=== PATIENT | male | born 1950 | race Caucasian/White ===

== ENCOUNTER 2016-07-02 08:17 | Inpatient (IN) | payer OTHER, BC ==
[2016-06-27 14:48] VITALS: BMI 38.0
--- NOTE | 2016-06-27 15:37 | PAT Medication Instructions ---
Service Date Jun 27, 2016. Current Home Medication List Amlodipine/Benazepril (Lotrel 10MG/20MG), 1 CAP PO QAM Ascorbic Acid (Vitamin C), 1,000 MG PO QAM Atenolol (Tenormin), 50 MG PO HS Cholecalciferol (Vitamin D), 2,000 INTER.UNIT PO DINNER Ferrous Sulfate (Ferrous Sulfate), 1 TAB PO QAM Finasteride (Proscar), 5 MG PO QPM Furosemide (Lasix), 20 MG PO QAM Levothyroxine Sodium (Levothyroxine Sodium), 1 TAB PO QAM Multivitamin (Multivitamin), 1 TAB PO QAM Omeprazole (Prilosec), 20 MG PO QAM Psyllium (Metamucil Powder), 1 PACK PO QAM Sertraline (Zoloft), 100 MG PO QAM Tamsulosin HCl (Tamsulosin HCl), 0.4 MG PO QPM Vitamin B Cmplx/Vitc/Folic Ac (Nephrocaps), 1 CAP PO QAM Medication Instructions For Your Scheduled Surgery - Hold the following medications the morning of surgery: Vitamin B Cmplx/Vitc/Folic Ac (Nephrocaps), 1 CAP PO QAM Psyllium (Metamucil Powder), 1 PACK PO QAM Multivitamin (Multivitamin), 1 TAB PO QAM Ascorbic Acid (Vitamin C), 1,000 MG PO QAM Furosemide (Lasix), 20 MG PO QAM Ferrous Sulfate (Ferrous Sulfate), 1 TAB PO QAM Amlodipine/Benazepril (Lotrel 10MG/20MG), 1 CAP PO QAM - Take the following medications the morning of surgery with a sip of water: Sertraline (Zoloft), 100 MG PO QAM Omeprazole (Prilosec), 20 MG PO QAM Levothyroxine Sodium (Levothyroxine Sodium), 1 TAB PO QAM - Take the following medications as scheduled the night before surgery: Tamsulosin HCl (Tamsulosin HCl), 0.4 MG PO QPM Cholecalciferol (Vitamin D), 2,000 INTER.UNIT PO DINNER Finasteride (Proscar), 5 MG PO QPM Atenolol (Tenormin), 50 MG PO HS If you have any questions please call us at [phone] or [phone] ( [place]) or [phone]
[2016-06-27 16:36] LABS: BASO % 0.3 %; BASO ABS # 0.02 K/uL (0-0.2); COMPLETE YES; EOS % 2.5 %; HEMATOCRIT 43.3 % (42-52); IG% 0.1 %; LYMPH % 28.6 %; LYMPH ABS # 1.94 K/uL (1.2-3.4); MEAN CELL VOLUME 89.1 fL (80-100); MEAN CORPUSCULAR HEMOGLOBIN 31.3 pg (25-34); MEAN CORPUSCULAR HGB CONC 35.1 g/dl (32-36); MEAN PLATELET VOLUME 10.5 fL (7.4-10.4); MONO % 8.1 %; NEUT % 60.4 %; PLATELET COUNT 181 K/uL (130-400); RED BLOOD COUNT 4.86 M/uL (4.7-6.1); WHITE BLOOD COUNT 6.78 K/uL (4.8-10.8)
--- NOTE | 2016-06-27 16:43 | DIAGNOSTIC IMAGING REPORT ---
CHEST PREADMISSION(PA/LAT) HISTORY: Preop. COMPARISON: Chest 05/10/2016. FINDINGS: The lungs are clear. Cardiac silhouette is normal in size. No pleural effusions. No pneumothorax. IMPRESSION: No acute process. Electronically signed by: Joaquín Steen M.D. 06/27/2016 4:41 PM Dictated Date/Time: 06/27/2016 4:39 PM
[2016-06-27 16:49] LABS: PROTHROMBIN TIME (PATIENT) 11.2 SECONDS (9.0-12.0)
[2016-06-27 17:00] LABS: BUN/CREATININE RATIO 17.6 (10-20); CREATININE 0.79 mg/dl (0.60-1.40); POTASSIUM 4.1 mmol/L (3.5-5.1)
--- NOTE | 2016-06-29 11:40 | HISTORY & PHYSICAL EXAMINATION ---
DATE OF ADMISSION: 07/02/2016 CHIEF COMPLAINT: Right knee pain and discomfort. HISTORY OF PRESENT ILLNESS: The patient is a 66-year-old gentleman who is well known to me from a previous left knee replacement done little over a year ago. He has a history of bilateral knee pain. The left knee is doing well. The right knee has become more debilitating. He has pain all the time. It is increased with weightbearing. It has really started to limit his activities. He cannot walk due to the pain. He does have a history of knee arthroscopy back in 2005 on this side which helped for several years. He would now like to proceed with surgical treatment of his right knee. PAST MEDICAL HISTORY: 1. History of intermittent atrial fibrillation with bronchitis, was previously on Xarelto but now off since mid may. 2. Hypertension. 3. Elevated cholesterol. 4. Sleep apnea with CPAP machine. 5. Hypothyroidism. 6. Obesity with a BMI of 39. 7. Gastroesophageal reflux disease. 8. Arthritis. 9. Basal cell skin cancer. 10. BPH. 11. Kidney stones. PAST SURGICAL HISTORY: Previous surgeries include: 1. Appendectomy. 2. Right carpal tunnel release. 3. Kidney stone surgery. 4. Nasal surgery. 5. Palate surgery. 6. Right knee scope done in 2005. 7. Left knee scope in 2006. 8. Prostate biopsy. 9. Rectal fistula. 10. Bladder stone surgery. 11. Back surgery done 2014. 12. Left knee replacement done June 2015. 13. Basal cell skin cancer. 14. Cataract surgery. ALLERGIES: STATINS. CURRENT MEDICINES: 1. Zoloft 100 mg a day. 2. Lotrel 10/20 once a day. 3. Lasix 20 mg a day. 4. Prilosec 20 mg a day. 5. Iron sulfate 325 once a day. 6. Metamucil. 7. Atenolol 25 mg at nighttime. 8. Baby aspirin twice a day. 9. Niacin 500 mg twice a day. 10. Levothyroxine 125 mcg a day. 11. Vitamin D 2000 international units a day. 12. Tamsulosin 0.4 mg once a day. 13. Finasteride 5 mg a day. 14. Multivitamin. 15. Vitamin C. 16. Vitamin B. SOCIAL HISTORY: A 66-year-old male. He is from [place]. FAMILY HISTORY: Noncontributory. REVIEW OF SYSTEMS: Negative for diabetes. He does have a history of some intermittent atrial fibrillation with bronchitis, but now in sinus rhythm. He was on Xarelto but now off. PHYSICAL EXAMINATION: GENERAL: Reveals a pleasant middle-aged male. He looks to be in reasonably good health. HEENT: Benign. NECK: Supple. No lymphadenopathy. LUNGS: Clear to auscultation. HEART: Regular rate and rhythm. ABDOMEN: Soft, nontender, nondistended. EXTREMITIES: Grossly neurovascularly intact except as follows: Examination of the right knee reveals the patient walks with a varus alignment to his knee. He does limp on the right side. He has got a varus thrust with weightbearing. Range of motion is 0-120. He is tender over the medial joint line. X-RAYS: X-rays of the right knee revealed advanced right knee DJD. He has got tricompartment disease, most severe in the medial side. He has got chondrocalcinosis. He has got anterior subluxation of the tibia, suggesting ACL deficiency. ASSESSMENT: A 66-year-old gentleman little over a year out from left knee replacement with advanced right knee degenerative joint disease. He has failed conservative treatment. He would like to have his right knee replaced. PLAN: We will take him to the operating room and do a right total knee replacement. The risks and benefits of this procedure were explained to the patient including but not limited to DVT, PE, , infection, neurological injury, vascular injury, bleeding problem, pain, limited range of motion, stiffness, failure to relieve symptoms, incomplete relief of symptoms, need for further surgery in the future, fracture, leg length inequality, persistent pain, etc. The patient understands and desires to proceed. Informed consent was obtained. We did talk about making sure he takes his atenolol the evening before surgery. He will bring his CPAP machine to the hospital. He stopped his Xarelto in the middle of May as his bronchitis has resolved. We will use aspirin for DVT prophylaxis as well as TEDs and SCDs. I will see him back 2 weeks postop.
[~2016-07-02] VITALS: Ht 175.3 cm; Wt 118.3 kg
[2016-07-02] VITALS (7 sets, daily range): BP systolic 126–166; BP diastolic 74–89; PULSE 58–68; TEMP 36.5–36.8; O2SAT 92–96; Ht 175.3 cm; Wt 118.3 kg
[~2016-07-02 08:17] MED LIST: ACETAMINOPHEN 500 MG TAB PO SCH; AMLO10CA PO; ASCO10003 PO; ATEN-173 PO; B-COCAP2 PO; BUPIVACAINE 0.5 % 5 MG/1 ML PF 10ML VIAL ONE; BUPIVACAINE LIPOSOME 266 MG, BUPIVACAINE/EPINEPHRINE INJ 50 ML, SODIUM CHLORIDE 0.9% PF... INFIL SCH; CEFAZOLIN 2000 MG/60 ML D5W 60 ML IV SCH; CHOL100010 PO; FAMOTIDINE 20 MG TAB PO SCH; FERR324T4 PO; FINA5TAB PO; FLM4 PO; FURO-85 PO; GABAPENTIN 300 MG CAP PO SCH; LACTATED RINGER'S 1000ML 1,000 ML IV SCH; LACTATED RINGER'S 1000ML 500 ML IV ONE; LACTATED RINGER'S 1000ML IV SCH; LEVO125T4 PO; METOCLOPRAMIDE HCL 10 MG TAB PO SCH; MULT-506 PO; PRLSR20 PO; PSYL55.43 PO; SCOPOLAMINE 1.5 MG TDSY TD SCH; SERT-234 PO; TRANEXAMIC ACID AMP 1,000 MG in NSS 100ML IV SCH
--- NOTE | 2016-07-02 09:08 | History & Physical Bridge Note ---
H&P Re-Evaluation Bridge Note: I have examined the patient, reviewed the History & Physical and in the interval since the performance of the History & Physical I have noted the following changes of clinical significance: No changes noted
[2016-07-02] MEDS ORDERED: ONDANSETRON INJ 2 MG/ML 2 ML VIAL ONE (09:58)
[2016-07-02] MEDS ORDERED: MIDAZOLAM HCL 1 MG/ML 2ML VIAL ONE (09:58)
[2016-07-02] MEDS ORDERED: PROPOFOL IV EMULSION 10 MG/ML 20 ML VIAL IV ONE (09:58)
[2016-07-02] MEDS ORDERED: LIDOCAINE HCL 2% 2 ML VIAL (20MG/ML) ONE (09:58)
[2016-07-02] MEDS ORDERED: FENTANYL CITRATE INJ 50 MCG/1 ML 2 ML VIAL ONE (09:58)
[2016-07-02] MEDS ORDERED: ATROPINE SULFATE 0.1 MG/ML 5ML SYR IV PRN (10:15)
[2016-07-02] MEDS ORDERED: EpHEDrine SULFATE INJ 50 MG/ML AMP IV PRN (10:15)
[2016-07-02] MEDS ORDERED: FENTANYL CITRATE INJ 50 MCG/1 ML 2 ML VIAL IV PRN (10:15)
[2016-07-02] MEDS ORDERED: ONDANSETRON INJ 2 MG/ML 2 ML VIAL IV PRN ×2 (10:15→13:15)
[2016-07-02] MEDS ORDERED: BUPIVACAINE LIPOSOME 1/3% 266 MG/20 ML VIAL INFIL ONE (11:08)
[2016-07-02] MEDS ORDERED: EpHEDrine SULFATE 50MG/5ML SYR ONE (12:04)
[2016-07-02] MEDS ORDERED: BACITRACIN 50000 UNIT VIAL IR ONE (12:12)
--- NOTE | 2016-07-02 13:09 | [facility] Post Operative Brief Note ---
Immediate Operative Summary Operative Date Jul 02, 2016. Pre-Operative Diagnosis Advanced Right Knee Degenerative Joint Disease Post-Operative Diagnosis Advanced Right Knee Degenerative Joint Disease Procedure(s) Performed Right Total Knee Arthroplasty Surgeon Dr. Mc Swine Genetics Researcher Surgeon(s) ALDO Mario Estimated Blood Loss 50 ml Findings Right Knee DJD Specimens A. Right Knee Bone and Tissue Drains None Anesthesia Spinal Complication(s) None Disposition Recovery Room / PACU
[2016-07-02] MEDS ORDERED: SILVER SULFADIAZINE 1% CR 50 GM JAR EXT PRN (13:15)
[2016-07-02] MEDS ORDERED: MAGNESIUM HYDROXIDE SUSP 30 ML UDC PO PRN (13:15)
[2016-07-02] MEDS ORDERED: BISACODYL 10 MG SUPP PR PRN (13:15)
[2016-07-02] MEDS ORDERED: METOCLOPRAMIDE HCL INJ 5 MG/ML 2 ML VIAL IV PRN (13:15)
[2016-07-02] MEDS ORDERED: ALUMINUM/MAGNESIUM/SIMETH (MAALOX MAX) 30 ML UDC PO PRN (13:15)
[2016-07-02] MEDS ORDERED: DiphenhydrAMINE HCL 50 MG/ML VIAL IV PRN (13:15)
[2016-07-02] MEDS ORDERED: ZOLPIDEM TARTRATE 5 MG TAB PO PRN (13:15)
--- NOTE | 2016-07-02 13:43 | DIAGNOSTIC IMAGING REPORT ---
RIGHT KNEE 1 OR 2 VIEWS ROUTINE CLINICAL HISTORY: Osteoarthritis. Postop study COMPARISON: None. DISCUSSION: There are postsurgical changes of a total right knee arthroplasty and patellar resurfacing. The femoral and tibial components appear well seated. Overlying skin neptali are evident. There is air in the soft tissues consistent with recent surgery. IMPRESSION: Postsurgical changes of a total right knee arthroplasty. Electronically signed by: Steve Ji M.D. 07/02/2016 1:41 PM Dictated Date/Time: 07/02/2016 1:41 PM
--- NOTE | 2016-07-02 14:16 | OPERATIVE REPORT ---
DATE OF OPERATION: 07/02/2016 SURGEON: Tru Mc MD STENOTYPE OPERATOR: ALDO Segovia PREOPERATIVE DIAGNOSIS: Right knee degenerative joint disease. POSTOPERATIVE DIAGNOSIS: Same. PROCEDURE PERFORMED: Right cemented posterior stabilized total knee arthroplasty. COMPLICATIONS: None. ESTIMATED BLOOD LOSS: 50 mL. FLUID REPLACEMENT: 1500 mL crystalloid fluid replacement. ANESTHESIA: Spinal with adductor canal block. DRAINS: None. SPECIMENS: Right knee sent for pathology. TOURNIQUET TIME: 59 minutes at 300 mmHg. OPERATIVE INDICATIONS: The patient is a 66-year-old fairly active gentleman who has had a long history of bilateral knee pain and discomfort. He has had both of his knees scoped over 10 years ago. He underwent a left knee replacement a year ago and has done pretty well. He has developed persistent and progressive pain in his right knee, unresponsive to conservative care. He elected to proceed with right total knee arthroplasty. OPERATIVE FINDINGS: Operative findings revealed advanced right knee DJD. He had extensive grade 4 changes in the medial femoral condyle and medial tibial plateau. He has spotty grade 4 changes in the other 2 compartments. He had pretty significant posterior medial osteophytes. Moderate size joint effusion. OPERATIVE IMPLANTS: Operative implants consisted of: 1. Biomet Vanguard size 67.5 right posterior stabilized femoral component. 2. Biomet size 75 tibial tray. 3. A 12-mm posterior stabilized polyethylene insert. 4. A 34 x 8.5 all poly patella. OPERATIVE PROCEDURE: The patient was taken to the operating room, identified and placed on the operating table in the supine position. All contact areas were appropriately padded. IV antibiotics were provided by the anesthesia team. A spinal anesthetic and adductor canal block had been provided in the holding area. Mays catheter was placed in sterile fashion. A right thigh tourniquet was then placed and the right lower extremity was then prepped and draped in the usual sterile fashion. The right leg was elevated and exsanguinated with Esmarch. Tourniquet was placed at 300 mmHg. An anterior approach to the right knee was then performed through a longitudinal incision centered over the patella. Sharp dissection was carried out through the subcutaneous tissues down to the level of the extensor mechanism. A medial parapatellar arthrotomy incision was made. Some subperiosteal dissection was carried out medially. The fat pad was resected from beneath the patella tendon. The patella was everted. The patella was fairly large, so I did elect to cut it at first. We cleaned the patella of all soft tissues. Patella thickness measured 25 mm in thickness and was cut down to about 15. It was sized to a size 34 patella. Lateral osteophyte was removed. I did not prepare the patella until the end of the case. The patella was then subluxated laterally. The knee was flexed. The osteophytes were taken off the distal femur. The ACL and PCL were released from the distal femur and the tibia subluxated anteriorly. The external tibial alignment jig was then placed in the anterior face of the tibia and adjusted 16 mm medially. Proximal tibial cut was made to remove about 2 mm of bone from most deficient aspect of the medial tibial plateau. Tibia was then sized to a size 75. Some osteophytes were taken off medial and posteromedially. Attention was then drawn to the femur. The distal femur was entered with a sharp drill. Intramedullary canal was suctioned. A right 6-degree valgus cutting guide was placed and distal femoral cutting block was pinned in place. Distal femoral cut was made to take an additional 3 mm of bone off the distal femur. The femur was then sized to a size 67.5. We did downsize this slightly. The AP cutting block was pinned parallel to the epicondylar axis, which was 4 degrees of external rotation. The anterior cut, anterior chamfer, posterior cut, and posterior chamfer cuts were made. Box cutting guide was placed and adjusted slightly lateral and the box cut was made. The knee was flexed. The remnants of the medial and lateral meniscus were excised. The osteophytes were taken off the posterior aspect of the femur. A trial femoral component was placed. Tibial tray was pinned in maximum external rotation and the drill and stem punch were used to create defect in proximal tibia for the tibial tray. The knee was then trialed and the 12-mm insert fit most appropriately. Attention was then drawn to the patella. The patella had already been cut. We then prepared the patella by drilling the lug holes. The patellar button was placed. Knee was taken through range of motion. Patella tracked nicely with the no thumbs test. Attention was then drawn toward placement of permanent components. All trial components were removed. Bone plug was placed in the distal femur to limit blood loss. The wound was irrigated extensively. A double batch of Palacos G cement was mixed. A right size 67.5 posterior stabilized femoral component, size 75 tibial tray, a 12-mm posterior stabilized polyethylene insert, and a 34 x 8.5 all poly patella were then cemented in place. Knee was brought out into full extension until cement hardened. A final cement check was then performed. Pericapsular tissues were injected with 100 mL of a combination of 20 mL of Exparel, 30 mL normal saline, and 50 mL of 0.25% Marcaine with epinephrine. The patient did receive 1 gram of tranexamic acid. The tourniquet was then let down for a final tourniquet time of 59 minutes. Hemostasis was assured with use of electrocautery. The extensor mechanism was then closed with a combination of #1 PDS suture and #1 Vicryl suture in a [id number] fashion. Extensor mechanism was checked and found to be intact. The subcutaneous tissues were then closed with 2-0 Dexon suture in a buried interrupted fashion. Skin was closed skin neptali. Leg was then cleaned and dried and a sterile dressing of Xeroform, 4 x 4, sterile cast padding and Terence bandage were applied. The patient then transferred to the recovery room in stable condition. The patient tolerated the procedure well no complications. All needle and sponge counts were correct at the end of the operation. I attest to the content of the Intraoperative Record and any orders documented therein. Any exceptions are noted below. MTDD
--- NOTE | 2016-07-02 14:39 | Anesthesiology Progress Note ---
Anesthesia Post Op Note Date & Time Jul 02, 2016 at 14:38 Vital Signs Pain Intensity: 0 Vital Signs Past 12 Hours Date Time Temp Pulse Resp B/P Pulse Ox O2 Delivery O2 Flow Rate FiO2 07/02/16 14:23 111/64 07/02/16 14:20 67 17 07/02/16 14:20 68 17 91 07/02/16 14:18 114/64 07/02/16 14:15 68 18 124/68 93 Nasal Cannula 2 07/02/16 14:15 69 16 93 07/02/16 14:15 64 16 07/02/16 14:14 68 19 07/02/16 14:14 69 19 91 07/02/16 14:13 124/68 07/02/16 14:09 66 19 91 07/02/16 14:09 66 19 07/02/16 14:08 116/61 07/02/16 14:05 65 18 118/63 92 Nasal Cannula 2 07/02/16 14:04 66 19 07/02/16 14:04 66 19 90 07/02/16 14:03 118/63 07/02/16 14:00 66 18 07/02/16 14:00 67 18 91 07/02/16 13:58 122/64 07/02/16 13:55 36.6 66 19 128/70 91 Nasal Cannula 2 07/02/16 13:55 69 9 95 07/02/16 13:55 69 9 07/02/16 13:55 69 9 07/02/16 13:55 69 9 95 07/02/16 13:53 128/70 07/02/16 13:53 128/70 07/02/16 13:50 71 20 96 07/02/16 13:50 71 20 07/02/16 13:50 71 20 96 07/02/16 13:50 71 20 07/02/16 13:48 120/63 07/02/16 13:48 120/63 07/02/16 13:45 70 19 89 07/02/16 13:45 68 19 07/02/16 13:45 70 19 89 07/02/16 13:45 68 19 07/02/16 13:43 123/69 07/02/16 13:43 123/69 07/02/16 13:40 67 21 07/02/16 13:40 66 21 96 07/02/16 13:40 67 21 07/02/16 13:40 66 21 96 07/02/16 13:38 116/64 07/02/16 13:38 116/64 07/02/16 13:35 65 17 07/02/16 13:35 65 17 07/02/16 13:35 70 17 98 07/02/16 13:35 70 17 98 07/02/16 13:33 121/60 07/02/16 13:33 121/60 07/02/16 13:30 69 17 07/02/16 13:30 69 17 07/02/16 13:30 75 17 97 07/02/16 13:30 75 17 97 07/02/16 13:28 123/67 07/02/16 13:28 123/67 07/02/16 13:25 68 18 07/02/16 13:25 67 18 99 07/02/16 13:25 68 18 07/02/16 13:25 67 18 99 07/02/16 13:23 123/62 07/02/16 13:23 123/62 07/02/16 13:20 71 18 98 07/02/16 13:20 68 18 07/02/16 13:20 71 18 98 07/02/16 13:20 68 18 07/02/16 13:18 119/66 07/02/16 13:18 119/66 07/02/16 13:15 66 21 07/02/16 13:15 69 21 98 07/02/16 13:15 37.0 68 18 126/65 98 Mask 10 07/02/16 13:15 69 21 98 07/02/16 13:15 66 21 07/02/16 08:35 36.8 67 20 126/74 94 Room Air Notes Mental Status: alert / awake / arousable, participated in evaluation Pt Amnestic to Procedure: Yes Nausea / Vomiting: adequately controlled Pain: adequately controlled Airway Patency, RR, SpO2: stable & adequate BP & HR: stable & adequate Hydration State: stable & adequate Neuraxial Anesthesia: was administered, sensory block is resolving Anesthetic Complications: no major complications apparent
[2016-07-02] MEDS: MoRPHine SULFATE 2 MG/ML CARP IV PRN (15:37)
[2016-07-02] MEDS: CHECK SCOPOLAMINE PATCH PLACEMENT SCH ×2 (16:07→23:46)
[2016-07-02] MEDS: D5W AND 1/2NSS + 20MEQ KCL 1,000 ML IV SCH ×2 (16:07→21:46)
[2016-07-02] MEDS: OXYCODONE HCL IR 5 MG TAB (IMMEDIATE RELEASE) PO PRN (16:11)
[2016-07-02] MEDS: FERROUS GLUCONATE 324 MG TAB PO SCH (18:09)
[2016-07-02] MEDS: ACETAMINOPHEN 500 MG TAB PO SCH (18:10)
[2016-07-02] MEDS: KETOROLAC TROMETHAMINE 15 MG/ML VIAL IV. SCH ×2 (18:11→23:45)
--- NOTE | 2016-07-02 18:22 | PROGRESS NOTE ---
DATE: 07/02/2016 SUBJECTIVE: A 66-year-old gentleman postop from a right knee replacement. He is doing pretty well. He is having significant pain in his knee. No chest pain or shortness of breath. Not feeling dizzy or lightheaded. OBJECTIVE: VITAL SIGNS: Temperature is 36.6. Vital signs stable. GENERAL: Shows a pleasant, elderly male. He is sitting up in bed, eating his lunch. He looks relatively comfortable despite his complaints of pain. LUNGS: Clear to auscultation. HEART: Regular rate and rhythm. ABDOMEN: Soft, nontender, nondistended. EXTREMITIES: Grossly neurovascularly intact. Examination of the right lower extremity reveals the leg to be well aligned. Dressing is clean, dry and intact. There is no drainage. He can dorsiflex and plantarflex his foot appropriately. He has got good straight leg. He is neurologically intact. X-RAYS: X-rays of the right knee show a posterior-stabilized total knee arthroplasty. Components are in good position. No signs of problems. ASSESSMENT: This 66-year-old gentleman postop a right total knee replacement, doing pretty well. He is having some pain, but looks reasonably comfortable. Vitals are stable. He is neurologically intact. PLAN: 1. DVT prophylaxis including thigh-high TEDs, SCDs, and aspirin twice a day. 2. PT/OT. Weightbearing as tolerated. Right total knee protocol. 3. IV antibiotics x 24 hours. 4. Pain control. We will start to treat him with IV morphine as needed and start him on oral medicines. 5. Disposition: Planning to discharge to home with home health once adequately recovered. OSVALDO
[2016-07-02] MEDS ORDERED: TRANEXAMIC ACID INJ 1,000 MG in SODIUM CHLORIDE 0.9% 100ML 100 ML IV SCH (19:00)
[2016-07-02] MEDS: CEFAZOLIN IV 2,000 MG in DEXTROSE 5% 50ML 50 ML IV SCH (21:43)
[2016-07-02] MEDS: TAPENTADOL ER 50 MG TABCR PO SCH (21:44)
[2016-07-02] MEDS: DOCUSATE SODIUM 100 MG CAP PO SCH (21:46)
[2016-07-02] MEDS: TAMSULOSIN HCL 0.4 MG CAP PO SCH (21:47)
[2016-07-02] MEDS: ASPIRIN 325 MG ECTAB PO SCH (21:48)
[2016-07-02] MEDS: FINASTERIDE 5 MG TAB PO SCH (21:48)
[2016-07-03] MEDS: ACETAMINOPHEN 500 MG TAB PO SCH ×3 (02:05→17:50)
[2016-07-03 04:00] VITALS: BP 133/79; PULSE 72; TEMP 36.9; O2SAT 95
[2016-07-03] MEDS: CEFAZOLIN IV 2,000 MG in DEXTROSE 5% 50ML 50 ML IV SCH (04:12)
[2016-07-03] MEDS: D5W AND 1/2NSS + 20MEQ KCL 1,000 ML IV SCH ×2 (04:13→11:36)
[2016-07-03] MEDS: LEVOTHYROXINE 125 MCG TAB PO SCH (05:32)
[2016-07-03] MEDS: KETOROLAC TROMETHAMINE 15 MG/ML VIAL IV. SCH ×4 (05:32→23:42)
[2016-07-03 06:09] LABS: HEMATOCRIT 40.9 % (42-52); MEAN CELL VOLUME 90.1 fL (80-100); MEAN CORPUSCULAR HEMOGLOBIN 31.1 pg (25-34); MEAN CORPUSCULAR HGB CONC 34.5 g/dl (32-36); MEAN PLATELET VOLUME 9.9 fL (7.4-10.4); PLATELET COUNT 162 K/uL (130-400); RED BLOOD COUNT 4.54 M/uL (4.7-6.1); WHITE BLOOD COUNT 11.45 K/uL (4.8-10.8)
[2016-07-03 06:33] LABS: BUN/CREATININE RATIO 14.4 (10-20); CALCIUM 8.7 mg/dl (8.5-10.1); CREATININE 0.91 mg/dl (0.60-1.40); POTASSIUM 4.2 mmol/L (3.5-5.1)
[2016-07-03 07:00] VITALS: BP 159/78; PULSE 70; TEMP 36.8; O2SAT 92
[2016-07-03] MEDS: CHECK SCOPOLAMINE PATCH PLACEMENT SCH ×3 (07:47→23:41)
[2016-07-03] MEDS: OXYCODONE HCL IR 5 MG TAB (IMMEDIATE RELEASE) PO PRN ×2 (07:50→13:03)
[2016-07-03] MEDS ORDERED: MULTIVITAMIN TAB PO SCH (09:00)
[2016-07-03] MEDS ORDERED: NON-FORMULARY MEDICATION (Omeprazole (Prilosec) 20 MG) PO SCH (09:00)
[2016-07-03] MEDS: SERTRALINE HCL 100 MG TAB PO SCH (09:16)
[2016-07-03] MEDS: NEPHROCAPS PO SCH (09:17)
[2016-07-03] MEDS: FERROUS GLUCONATE 324 MG TAB PO SCH ×3 (09:17→17:49)
[2016-07-03] MEDS: DOCUSATE SODIUM 100 MG CAP PO SCH ×2 (09:17→20:48)
[2016-07-03] MEDS: CHOLECALCIFEROL 1000 INTER.UNIT TAB PO SCH (09:17)
[2016-07-03] MEDS: PANTOprazole SOD 40 MG TAB PO SCH (09:17)
[2016-07-03] MEDS: ASCORBIC ACID 500 MG TAB PO SCH (09:17)
[2016-07-03] MEDS: ASPIRIN 325 MG ECTAB PO SCH ×2 (09:17→20:48)
[2016-07-03] MEDS: PSYLLIUM 58.6% PWD PACK S\\F PO SCH (09:18)
[2016-07-03] MEDS: MULTIVITAMIN TAB PO SCH (09:18)
[2016-07-03] MEDS: FUROSEMIDE 20 MG TAB PO SCH (09:18)
[2016-07-03] MEDS: TAPENTADOL ER 50 MG TABCR PO SCH ×2 (09:22→20:49)
[2016-07-03] MEDS: MoRPHine SULFATE 2 MG/ML CARP IV PRN (09:23)
--- NOTE | 2016-07-03 09:46 | Anesthesiology Progress Note ---
Anesthesia Post Op Note Date & Time Jul 03, 2016 at 09:45 Vital Signs Pain Intensity: 8.0 Vital Signs Past 12 Hours Date Time Temp Pulse Resp B/P Pulse Ox O2 Delivery O2 Flow Rate FiO2 07/03/16 07:00 36.8 70 19 159/78 92 Room Air 07/03/16 04:00 36.9 72 18 133/79 95 Room Air 07/02/16 23:45 Room Air 07/02/16 23:35 36.5 68 20 146/77 92 Room Air Notes Mental Status: alert / awake / arousable, participated in evaluation Pt Amnestic to Procedure: Yes Nausea / Vomiting: adequately controlled Pain: adequately controlled Airway Patency, RR, SpO2: stable & adequate BP & HR: stable & adequate Hydration State: stable & adequate Neuraxial Anesthesia: sensory block resolved Anesthetic Complications: no major complications apparent
[2016-07-03 11:06] VITALS: BP 133/71; PULSE 91; TEMP 37.2; O2SAT 91
[2016-07-03] MEDS ORDERED: OXYC-57 PO (12:56)
[2016-07-03] MEDS ORDERED: MORP15TA19 PO (12:56)
[2016-07-03] MEDS ORDERED: ASPEC325 PO (12:56)
--- NOTE | 2016-07-03 13:09 | PROGRESS NOTE ---
DATE: 07/03/2016 DATE: 07/03/2016. SUBJECTIVE: A 66-year-old gentleman postop day 1 from right knee replacement. He was pretty painful this morning but seems to be doing better this afternoon. Denies any chest pain or shortness of breath. Not feeling dizzy or lightheaded. OBJECTIVE: VITAL SIGNS: Temperature 37.2. Vital signs stable. PHYSICAL EXAMINATION: GENERAL: Physical examination reveals a healthy, pleasant, middle-aged male. He is sitting up at his bedside chair and looks pretty comfortable. LUNGS: Clear to auscultation. HEART: Regular rate and rhythm. ABDOMEN: Soft, nontender, nondistended. EXTREMITY EXAMINATION: Grossly neurovascularly intact except as follows: Examination of the right lower extremity reveals the dressing to be clean, dry and intact. It has been reinforced. He can dorsiflex and plantarflex his foot appropriately. He is neurologically intact. LABORATORY DATA: Hemoglobin is 14.1, hematocrit 40.9. Electrolytes are stable. ASSESSMENT: A 66-year-old gentleman postop day 1 from right total knee replacement, doing pretty well. Pretty painful this morning but seems to be a bit better. He looks pretty comfortable sitting up in his chair. PLAN: 1. DVT prophylaxis including thigh-high TEDs, SCDs, and aspirin twice a day. 2. PT/OT. Weightbearing as tolerated. Right total knee protocol. 3. Pain control. Will continue oral medicines and supplement with IV morphine if needed. 4. Disposition: He is hoping to be discharged to home with some home health once adequately recovered.
[2016-07-03 16:12] VITALS: BP 160/104; PULSE 72; TEMP 36.9; O2SAT 92
[2016-07-03] MEDS: TAMSULOSIN HCL 0.4 MG CAP PO SCH (20:48)
[2016-07-03] MEDS: FINASTERIDE 5 MG TAB PO SCH (20:48)
--- NOTE | 2016-07-03 21:23 | Discharge Instructions ---
Discharge Instructions Admission Reason for Admission: Right Knee Osteoarthritis, Hx Of Total Knee Arthro Discharge Discharge Diagnosis / Problem: Right Knee Replacement Discharge Goals Goal(s): Decrease discomfort, Improve function, Increase independence, Improve disease control, Therapeutic intervention Activity Recommendations Activity Limitations: per Instructions/Follow-up section Weightbearing Status: Right weightbearing . Instructions / Follow-Up Instructions / Follow-Up ACTIVITY RECOMMENDATIONS: Physical Therapy: * You will go to physical therapy three times each week for four to six weeks after your surgery in order to regain your knee range of motion and to retrain your knee to work properly. * It is just as important to make sure you are getting your knee perfectly straight as it is to regain your knee bend. * Taking a pain pill an hour before therapy can help you have a more productive and comfortable therapy session. Home Exercise: * You were shown a series of exercises (heel props, heel slides, etc.) in the hospital. Do these exercises three to four times each day including the exercises you were shown in physical therapy. Walking: * Get up and walk several times each day. For the first four weeks, try not to stand or walk for more than one hour at a time. If you do stand or walk for more than one hour, you will not hurt anything, but your knee and leg will likely swell. * As you feel comfortable, you may change from the walker or crutches to a cane and then to independent walking. MEDICATIONS: New Medicine: * You will likely be taking one or more of these medications: 1. MS Contin - A long-acting pain medication. Take 1 tablet twice a day for the first ten days to decrease your baseline level of pain. 2. Percocet - A quick and shorter-acting pain medication. Take one to two tablets every four to six hours to lessen your pain. 3. Aspirin - Thins your blood to lessen the chance of forming a blood clot. * The most common side effects of pain medicine and iron are nausea and constipation. If nausea or constipation is too much of a problem or if you have any questions about your new medicines or doses, call [facility] at [phone]. We will try to help you manage these issues. VERY IMPORTANT TO READ AND REVIEW" Pain: * The immediate post-operative period after knee replacement surgery is often quite painful. * You are given a prescription for pain medicine. You should take it, as directed, when you need it, especially before physical therapy and before going to bed. Pain that interferes with sleep is very common and can last several months. * You will likely need pain medicine for the first four to six weeks. It will not stop all of the pain. The pain will lessen and as you feel better, you may change to milder pain medicine such as Tylenol. * The most common side effects of pain medicine are nausea and constipation, so don't take more than you need. SPECIAL CARE INSTRUCTIONS: TEDs/Elastic Stockings: * The white elastic stockings help limit swelling and prevent blood clots from forming in your legs. The more you wear them, the more they work. * Wear them for six weeks after knee replacement surgery and four weeks after partial knee replacement. Prevention of Infection: * Take antibiotics one hour before any dental cleaning, dental work, urological procedure, gastrointestinal procedure or any invasive surgery in order to prevent your new joint from getting infected. * You may get the antibiotics from the doctor performing the procedure or you may call our office at before and we will call in a prescription to the pharmacy of your choice. Things to Watch For: * Drainage from the incision site that occurs more than one week after your surgery. * Severely increased knee/leg pain or swelling. * Increased redness at the incision site. * Fever above 102 degrees Fahrenheit. * Unusual chest pain or shortness of breath. * Unusual pain or burning with urination. Call [facility] at with any of the above problems or if you have any questions about your medicines or recovery. FOLLOW UP VISIT: Make an appointment to see your doctor for approximately two weeks after surgery for a progress check and staple removal by calling the office at . Current Hospital Diet Patient's current hospital diet: Regular Diet Discharge Diet Recommended Diet: Regular Diet Procedures Procedures Performed: Right Total Knee Arthroplasty Pending Studies Studies pending at discharge: no Medical Emergencies . Who to Call and When: Medical Emergencies: If at any time you feel your situation is an emergency, please call [phone] immediately. . Non-Emergent Contact Non-Emergency issues call your: Surgeon . "Provider Documentation" section prepared by Tru Mc. VTE Core Measure Inpt VTE Proph given/why not?: Other Anticoagulation, T.E.D. Stockings, SCD's
[2016-07-04 00:04] VITALS: BP 163/79; PULSE 77; TEMP 36.7; O2SAT 91
[2016-07-04] MEDS: ACETAMINOPHEN 500 MG TAB PO SCH ×2 (02:30→10:00)
[2016-07-04] MEDS: LEVOTHYROXINE 125 MCG TAB PO SCH (05:23)
[2016-07-04] MEDS: KETOROLAC TROMETHAMINE 15 MG/ML VIAL IV. SCH ×2 (05:24→11:59)
[2016-07-04 07:04] VITALS: BP 120/71; PULSE 74; TEMP 36.5; O2SAT 95
--- NOTE | 2016-07-04 07:46 | PROGRESS NOTE ---
DATE: 07/04/2016 SUBJECTIVE: A 66-year-old gentleman postop day 2 from a right knee replacement. The pain seems to be improved today. No chest pain or shortness of breath. Not feeling dizzy or lightheaded. OBJECTIVE: VITAL SIGNS: Temperature 36.5. Vital signs stable. PHYSICAL EXAMINATION: GENERAL: Reveals a pleasant elderly male. He is sitting up in bed, looks pretty comfortable. LUNGS: Clear to auscultation. HEART: Has regular rate and rhythm. ABDOMEN: Soft, nontender, nondistended. EXTREMITIES: Grossly neurovascularly intact except as follows: Examination of the right lower extremity reveals the leg to be well aligned. His incision is clean and dry. There was a significant amount of bloody drainage from the inferior aspect of the incision site. The incision itself was well approximated without much swelling. He can dorsiflex and plantarflex his foot appropriately. Calf is soft and supple. There is no significant hematoma. ASSESSMENT: A 66-year-old gentleman postop day 2 from right knee replacement, doing pretty well. Did have a little bit of bloody seepage from the inferior aspect of his wound which is unexpected. PLAN: 1. DVT prophylaxis including thigh-high TEDs, SCDs, and aspirin twice a day. 2. PT/OT. Weightbearing as tolerated. Right total knee protocol. 3. Pain control, doing pretty well with current pain regimen. 4. Disposition: He is planning to be discharged to home and do some outpatient therapy.
[2016-07-04] MEDS: ASPIRIN 325 MG ECTAB PO SCH (08:39)
[2016-07-04] MEDS: FERROUS GLUCONATE 324 MG TAB PO SCH ×2 (08:39→12:57)
[2016-07-04] MEDS: DOCUSATE SODIUM 100 MG CAP PO SCH (08:39)
[2016-07-04] MEDS: MULTIVITAMIN TAB PO SCH (08:40)
[2016-07-04] MEDS: FUROSEMIDE 20 MG TAB PO SCH (08:40)
[2016-07-04] MEDS: SERTRALINE HCL 100 MG TAB PO SCH (08:40)
[2016-07-04] MEDS: PSYLLIUM 58.6% PWD PACK S\\F PO SCH (08:40)
[2016-07-04] MEDS: NEPHROCAPS PO SCH (08:40)
[2016-07-04] MEDS: CHOLECALCIFEROL 1000 INTER.UNIT TAB PO SCH (08:40)
[2016-07-04] MEDS: ASCORBIC ACID 500 MG TAB PO SCH (08:40)
[2016-07-04] MEDS: TAPENTADOL ER 50 MG TABCR PO SCH (08:46)
[2016-07-04] MEDS: OXYCODONE HCL IR 5 MG TAB (IMMEDIATE RELEASE) PO PRN ×2 (08:47→12:57)
[2016-07-04] MEDS: PANTOprazole SOD 40 MG TAB PO SCH (09:59)
[2016-07-04 13:10] VITALS: BP 120/71; PULSE 74; TEMP 36.5; O2SAT 95
--- NOTE | 2016-07-16 13:23 | DISCHARGE SUMMARY ---
ADMITTING PHYSICIAN AND SURGEON: Dr. Mc. ADMITTING DIAGNOSIS: Right knee degenerative joint disease. SURGERY PERFORMED: Right total knee arthroplasty. SECONDARY DIAGNOSES: Atrial fibrillation, hypertension, elevated cholesterol, sleep apnea, hypothyroidism, obesity, gastroesophageal reflux disease, arthritis, basal cell skin cancer, BPH and kidney stones. CONSULTS: None obtained. HISTORY AND PHYSICAL EXAMINATION: Well documented in the patient's chart. HOSPITAL COURSE: The patient was admitted on 07/02/2016, underwent total knee arthroplasty, tolerated the procedure well. There were no complications. He was transferred to the PACU postoperatively and later to the orthopedic floor for further care. He was given Ancef for antibiotic prophylaxis, DORON stockings, SCDs and aspirin for DVT prophylaxis. His hemoglobin, hematocrit and vital signs were monitored during his hospital stay and remained stable. He did not require any blood transfusions. There were no complications. By postoperative day 2, he was tolerating a general diet, pain was controlled with oral pain medicine. He was participating in physical therapy and had no signs or symptoms of deep vein thrombosis. On postoperative day 2, he was discharged home in good condition. He was given printed discharge instructions including prescriptions for aspirin 325 mg b.i.d., Percocet. He can continue his home medications, continue physical therapy. He is weightbearing as tolerated, DORON stockings. He will follow up with Dr. Mc in 10-12 days or sooner if any problems or concerns.
[2017-03-06] MEDS ORDERED: ACET-1256 PO (09:25)
[2017-03-06] MEDS ORDERED: CHOL20009 PO (09:25)
[2017-03-06] MEDS ORDERED: LEVO100T PO (09:25)
[2017-03-06] MEDS ORDERED: RIVA1TAB4 PO (09:25)
[2017-03-06] MEDS ORDERED: FERR1TAB13 PO (09:25)
[2017-03-06] MEDS ORDERED: FURO40TA3 PO (09:25)
[2017-03-06] MEDS ORDERED: ATEN100T PO (09:25)
[2017-03-06] MEDS ORDERED: PSYL48.59 PO (09:25)
[2017-03-06] MEDS ORDERED: B-COTAB53 PO (09:25)
== END 2016-07-04 13:30 | disposition home health service (06) | DRG 470 ==
LOC: ENRESERVDT → ENRESERVTM → C.ACU 08:17 → C.3E 08:28
PROVIDERS: ADMIT Orthopaedic Surgery Sports Medicine; ATTEND Orthopaedic Surgery Sports Medicine
PROC: 0SRC0J9 Replacement of Right Knee Joint with Synthetic Substitute, Cemented, Open Approach (ICD-10-PCS; principal; 2016-07-02 10:30)
DX: M17.11 Unilateral primary osteoarthritis, right knee (principal); M11.261 Other chondrocalcinosis, right knee; M23.611 Other spontaneous disruption of anterior cruciate ligament of right knee; M25.461 Effusion, right knee; I48.0 Paroxysmal atrial fibrillation; I11.0 Hypertensive heart disease with heart failure; I50.9 Heart failure, unspecified; G47.30 Sleep apnea, unspecified; E03.9 Hypothyroidism, unspecified; N40.0 Benign prostatic hyperplasia without lower urinary tract symptoms; K21.9 Gastro-esophageal reflux disease without esophagitis; F41.9 Anxiety disorder, unspecified; F32.9 Major depressive disorder, single episode, unspecified; E66.9 Obesity, unspecified; Z68.39 Body mass index [BMI] 39.0-39.9, adult; Z96.652 Presence of left artificial knee joint; Z99.89 Dependence on other enabling machines and devices; Z79.82 Long term (current) use of aspirin; Z79.899 Other long term (current) drug therapy

== ENCOUNTER → 2017-03-12 | Day surgery (SDC) | payer OTHER, BC ==
[2017-03-06 09:30] VITALS: Ht 175.3 cm; Wt 114.1 kg
[~2017-03-12] VITALS: Ht 175.3 cm; Wt 114.1 kg
[~2017-03-12] MED LIST changes: +ACET-1256 PO; -ACETAMINOPHEN 500 MG TAB PO SCH; -ATEN-173 PO; +ATEN100T PO; +ATROPINE SULFATE 0.1 MG/ML 5ML SYR IV PRN; -B-COCAP2 PO; +B-COTAB53 PO; -BUPIVACAINE 0.5 % 5 MG/1 ML PF 10ML VIAL ONE; -BUPIVACAINE LIPOSOME 266 MG, BUPIVACAINE/EPINEPHRINE INJ 50 ML, SODIUM CHLORIDE 0.9% PF... INFIL SCH; +BUPIVACAINE/EPINEPHRINE 0.5% MPF 1:200,000 30 ML VIAL ONE; -CEFAZOLIN 2000 MG/60 ML D5W 60 ML IV SCH; +CEFAZOLIN 2000 MG/60 ML D5W IV SCH; +CEFAZOLIN SOD 1 GM VIAL ONE; +CEFAZOLIN SOD 1000MG/55 ML D5W IV ONE; -CHOL100010 PO; +CHOL20009 PO; +EpHEDrine SULFATE INJ 50 MG/ML AMP IV PRN; -FAMOTIDINE 20 MG TAB PO SCH; +FENTANYL CITRATE INJ 50 MCG/1 ML 2 ML VIAL ONE; +FERR1TAB13 PO; -FERR324T4 PO; +FLUMAZENIL 0.1 MG/1 ML 10 ML VIAL IV PRN; -FURO-85 PO; +FURO40TA3 PO; -GABAPENTIN 300 MG CAP PO SCH; +HYDROmorphone INJ 1 MG/ML SYR IV PRN; +LABETALOL HCL IV 5 MG/ML 20ML IV PRN; -LACTATED RINGER'S 1000ML 500 ML IV ONE; -LACTATED RINGER'S 1000ML IV SCH; +LEVO100T PO; -LEVO125T4 PO; +LIDOCAINE HCL 2% 2 ML VIAL (20MG/ML) ONE; -METOCLOPRAMIDE HCL 10 MG TAB PO SCH; +MIDAZOLAM HCL 1 MG/ML 2ML VIAL ONE; +NALOXONE HCL 0.4 MG/1 ML VIAL/CARP IV PRN; +ONDANSETRON INJ 2 MG/ML 2 ML VIAL IV PRN; +ONDANSETRON INJ 2 MG/ML 2 ML VIAL ONE; +OXYC-57 PO; +OXYCODONE/ACETAMINOPHEN 5-325 TAB PO PRN; +PROMETHAZINE HCL INJ 12.5 MG in SODIUM CHLORIDE 0.9% 50ML 50 ML IV PRN; +PROPOFOL IV EMULSION 10 MG/ML 20 ML VIAL IV ONE; +PSYL48.59 PO; -PSYL55.43 PO; +RIVA1TAB4 PO; -SCOPOLAMINE 1.5 MG TDSY TD SCH; +SODIUM CHLORIDE 0.9% 1000ML 1,000 ML IV SCH; -TRANEXAMIC ACID AMP 1,000 MG in NSS 100ML IV SCH
--- NOTE | 2017-03-12 11:27 | [facility] Post Operative Brief Note ---
Immediate Operative Summary Operative Date Mar 12, 2017. Pre-Operative Diagnosis Left Carpal Tunnel Syndrome, Cubital Tunnel Syndrome Post-Operative Diagnosis Same Procedure(s) Performed Left Ulnar Nerve Transposition And Left Carpal Tunnel Release Surgeon Dr Mc Printing Equipment Mechanic Surgeon(s) Julio Flores PA-C Estimated Blood Loss 20 cc Findings Left Carpal Tunnel Syndrome + Cubital Tunnel Syndrome with subluxation ulnar nerve. Specimens None Anesthesia General Complication(s) None Disposition Recovery Room / PACU
--- NOTE | 2017-03-12 11:33 | Discharge Instructions-SurgCtr ---
Discharge Instructions Date of Service Mar 12, 2017. Visit Reason for Visit: Left Carpal Tunnel Syndrome, Cubital Tunnel Syndro Discharge Discharge Diagnosis / Problem: left carpal tunnel and cubital tunnel syndrome Discharge Goals Goal(s): Decrease discomfort, Improve function, Therapeutic intervention Medications Stopped Medications Name(s): Vitamin D, Vitamin C, Vitamin B, Ferrous Sulfate, Multivitamin last dose 03/04/17 Restart Stopped Medication(s): May begin taking vitamins and Ferrous sulfate again. Restart Xarelto tomorrow ( 03/13). Activity Recommendations Activity Limitations: per Instructions/Follow-up section Anesthesia . Post Anesthesia Instructions: If you have had General Anesthesia or IV Sedation: * Do not drive today. * Resume driving when surgeon permits. * Do not make important decisions or sign legal documents today. * Call surgeon for: 1. Temperature elevations greater than 101 degrees F. 2. Uncontrollable pain. 3. Excessive bleeding. 4. Persistent nausea and vomiting. 5. Medication intolerance (nausea, vomiting or rash). * For nausea and vomiting use only clear liquids such as: tea, soda, bouillon until nausea subsides, then gradually increase diet as tolerated. * If you have any concerns or questions, call your surgeon's office. If physician is unavailable and it is an emergency, call 911 or go to the nearest emergency room. . Instructions / Follow-Up Instructions / Follow-Up MEDICATIONS: * Resume previous medications unless instructed otherwise by your surgeon. * Always take pain medication on a full stomach or with food to avoid upset stomach. * Do not drink alcohol or drive while taking narcotics. * Tylenol may be taken if narcotic not needed. SPECIAL CARE INSTRUCTIONS: __ None _x_ Keep extremity elevated and iced x 48 hours; apply ice 20-30 minutes 8-10 times/day. May remove at night. _x_ Sling __24 hrs/day __ Remove at night __ Shoulder Immobilizer __ 24 hrs/day __ Remove at night _x_ Dressing _x_ Maintain until seen in office, may shower with plastic over site __ Remove dressings in 24-48 hours and then may shower __ Cover incisions with band-aids after showering __ Do not remove steri-strips Call physician if chills or temperature rises above 102 degrees or pain unrelieved by prescribed pain medications at . . follow up in 2 weeks Diet Recommendations Home Diet: resume previous diet Procedures Procedures Performed: Left Ulnar Nerve Transposition And Left Carpal Tunnel Release Pending Studies Studies pending at discharge: no Medical Emergencies . Who to Call and When: Medical Emergencies: If at any time you feel your situation is an emergency, please call 911 immediately. . Non-Emergent Contact Non-Emergency issues call your: Surgeon . . "Provider Documentation" section prepared by Norman Flores. .
--- NOTE | 2017-03-12 12:21 | Anesthesia Progress Nt - [facility] ---
Anesthesia Post Op Note Date & Time Mar 12, 2017 at 12:21 Vital Signs Pain Intensity: 3 Vital Signs Past 12 Hours Date Time Temp Pulse Resp B/P (MAP) Pulse Ox O2 Delivery O2 Flow Rate FiO2 03/12/17 12:10 37.0 94 Room Air 03/12/17 12:00 133/89 03/12/17 11:59 102 23 03/12/17 11:59 108 23 97 03/12/17 11:55 133/87 03/12/17 11:54 100 24 94 03/12/17 11:54 99 24 03/12/17 11:53 103 16 93 03/12/17 11:53 105 16 03/12/17 11:51 131/88 03/12/17 11:48 94 25 03/12/17 11:48 98 25 96 03/12/17 11:45 131/87 03/12/17 11:43 89 24 96 03/12/17 11:43 95 24 03/12/17 11:42 102 23 03/12/17 11:42 96 23 97 03/12/17 11:42 102 23 03/12/17 11:42 96 23 97 03/12/17 11:41 124/89 03/12/17 11:41 124/89 03/12/17 11:37 105 20 03/12/17 11:37 106 20 95 03/12/17 11:37 105 20 03/12/17 11:37 106 20 95 03/12/17 11:36 106/83 03/12/17 11:36 106/83 03/12/17 11:32 98 23 03/12/17 11:32 98 23 03/12/17 11:32 100 23 95 03/12/17 11:32 100 23 95 03/12/17 11:30 125/97 03/12/17 11:30 125/97 03/12/17 11:28 137/88 03/12/17 11:28 137/88 03/12/17 11:27 36.5 102 16 137/88 98 Mask 7 03/12/17 08:16 36.4 80 18 134/82 (99) 95 Room Air Notes Mental Status: alert / awake / arousable, participated in evaluation Pt Amnestic to Procedure: Yes Nausea / Vomiting: adequately controlled Pain: adequately controlled Airway Patency, RR, SpO2: stable & adequate BP & HR: stable & adequate Hydration State: stable & adequate Anesthetic Complications: no major complications apparent
[2017-03-12 12:35] VITALS: TEMP 36.9
[2017-03-12 13:01] VITALS: BP 133/77; PULSE 92; O2SAT 95
--- NOTE | 2017-03-12 13:08 | OPERATIVE REPORT ---
DATE OF OPERATION: 03/12/2017 SURGEON: Tru Mc MD INSTRUCTIONAL COACH: ALDO Segovia PREOPERATIVE DIAGNOSES: 1. Left cubital tunnel syndrome. 2. Left carpal tunnel syndrome. POSTOPERATIVE DIAGNOSIS: 1. Left cubital tunnel syndrome with subluxating ulnar nerve. 2. Left carpal tunnel syndrome. PROCEDURES PERFORMED: 1. Left ulnar nerve transposition. 2. Left carpal tunnel release. COMPLICATIONS: None. ESTIMATED BLOOD LOSS: 20 mL. TOURNIQUET TIME: 1. Tourniquet time for the ulnar nerve transposition was 23 minutes at 250 mmHg. 2. Tourniquet time for the carpal tunnel release was 6 minutes at 250 mmHg. ANESTHESIA: General. SPECIMENS: None. OPERATIVE INDICATIONS: The patient is a 66-year-old gentleman with multiple medical comorbidities, had a several month history of progressive and increasing left arm pain, discomfort and numbness. He had some nerve studies, which revealed left carpal tunnel syndrome as well as left cubital tunnel syndrome. He elected to proceed with surgical treatment. OPERATIVE PROCEDURE: The patient was taken to the operating room, identified and placed on the operating table in the supine position. All contact areas were appropriately padded. IV antibiotics were provided by anesthesia team. A general anesthetic was implemented by anesthesia team. A left upper extremity tourniquet was then placed. The left arm was then prepped and draped in the usual sterile fashion. The left arm was elevated and exsanguinated with Esmarch and tourniquet was placed at 250 mmHg. Attention was first drawn to the carpal tunnel. A 2.5-3 cm incision was made in the palm just ulnar to the palmaris longus tendon. Blunt dissection was carried through the subcutaneous tissues down to the level of the palmar fascia. The palmar fascia was incised longitudinally in line with skin incision. The underlying transverse carpal ligament was identified. It was cleaned of soft tissues. It was transected distally with use of a Golf blade knife and then bluntly spread. Attention was then drawn proximally. Blunt dissection was carried out above and below the ligament proximally. The ligament was transected for a minimum distance of 3 cm proximal to the wrist flexion crease. The ligament was bluntly spread and found to be completely released. I then irrigated the wound extensively. I did inject locally with 10 mL of 0.5% Marcaine with epinephrine with taking great care not to inject right around the arteries. The tourniquet was let down for a tourniquet time of 6 minutes. Hemostasis was assured with use of electrocautery. The wound was once again irrigated. The skin was closed with 5-0 nylon suture. Attention was then drawn to the elbow. The left arm was elevated and exsanguinated with Esmarch and tourniquet was placed at 250 mmHg. A medial approach to the elbow was then performed through a curvilinear incision centered over the cubital tunnel. Sharp dissection was carried out through the subcutaneous tissues down to level of the fascia. Full thickness flaps were elevated over the flexor pronator mass. The ulnar nerve was subluxating with the elbow motion. The ulnar nerve was identified proximal to the cubital tunnel and isolated and dissected out the minimum distance of 5 cm distal to the cubital tunnel and 10 cm proximal. The intermuscular septum was excised. I then transposed the nerve. A fascial flap of flexor pronator mass fascia was elevated and hinged on the medial epicondyle. The nerve was transposed anteriorly. I did sew this fascial flap to the subcutaneous tissues about 2 cm anterior to the medial epicondyle to prevent resubluxation. The cubital tunnel was then repaired with 2-0 Vicryl suture in a [id number] fashion. I did inject locally with 20 mL of 0.5% Marcaine with epinephrine. I irrigated the wound extensively. The tourniquet was let down for a tourniquet time of 23 minutes. Hemostasis was assured with use of electrocautery. There was not excessive bleeding. The subcutaneous tissues were then closed with 2-0 Dexon suture in a buried interrupted fashion. Skin was closed with 3-0 Prolene suture in a subcuticular fashion. The arm was then cleaned and dried and a sterile dressing composed of Steri-Strips, Xeroform, 4 x 4s, sterile cast padding, Terence bandage and a well-padded posterior splint were applied followed by a sling. The patient was then brought out of general anesthesia and transferred to the recovery room in stable condition. The patient tolerated the procedure well with no complications. All needle and sponge counts were correct at the end of the operation. I attest to the content of the Intraoperative Record and any orders documented therein. Any exceptions are noted below. OSVALDO
== END | disposition home or self-care (01) ==
LOC: X.SURG 07:59
PROVIDERS: ATTEND Orthopaedic Surgery Sports Medicine
DX: G56.22 Lesion of ulnar nerve, left upper limb (principal); G56.02 Carpal tunnel syndrome, left upper limb; I10 Essential (primary) hypertension; R00.2 Palpitations; K21.9 Gastro-esophageal reflux disease without esophagitis; E03.9 Hypothyroidism, unspecified

== ENCOUNTER → 2018-01-15 | Outpatient (CLI) | payer OTHER, BC ==
[~2018-01-15] MED LIST changes: -ACET-1256 PO; -ATROPINE SULFATE 0.1 MG/ML 5ML SYR IV PRN; -BUPIVACAINE/EPINEPHRINE 0.5% MPF 1:200,000 30 ML VIAL ONE; -CEFAZOLIN 2000 MG/60 ML D5W IV SCH; -CEFAZOLIN SOD 1 GM VIAL ONE; -CEFAZOLIN SOD 1000MG/55 ML D5W IV ONE; -EpHEDrine SULFATE INJ 50 MG/ML AMP IV PRN; -FENTANYL CITRATE INJ 50 MCG/1 ML 2 ML VIAL ONE; -FLUMAZENIL 0.1 MG/1 ML 10 ML VIAL IV PRN; -HYDROmorphone INJ 1 MG/ML SYR IV PRN; -LABETALOL HCL IV 5 MG/ML 20ML IV PRN; -LACTATED RINGER'S 1000ML 1,000 ML IV SCH; -LIDOCAINE HCL 2% 2 ML VIAL (20MG/ML) ONE; -MIDAZOLAM HCL 1 MG/ML 2ML VIAL ONE; -NALOXONE HCL 0.4 MG/1 ML VIAL/CARP IV PRN; -ONDANSETRON INJ 2 MG/ML 2 ML VIAL IV PRN; -ONDANSETRON INJ 2 MG/ML 2 ML VIAL ONE; -OXYC-57 PO; -OXYCODONE/ACETAMINOPHEN 5-325 TAB PO PRN; -PROMETHAZINE HCL INJ 12.5 MG in SODIUM CHLORIDE 0.9% 50ML 50 ML IV PRN; -PROPOFOL IV EMULSION 10 MG/ML 20 ML VIAL IV ONE; -SODIUM CHLORIDE 0.9% 1000ML 1,000 ML IV SCH
== END | disposition home or self-care (01) ==
LOC: C.LABMFLN 11:39
PROVIDERS: ATTEND Internal Medicine Endocrinology, Diabetes & Metabolism
DX: E03.8 Other specified hypothyroidism (principal)